=== PATIENT | female | born 1970 | race Two or more races ===

== ENCOUNTER 2024-09-14 12:46 | Inpatient (IN) | payer MEDICAID, OTHER ==
[~2024-09-14] VITALS: Ht 162.6 cm; Wt 89.3 kg
--- NOTE | 2024-09-14 12:58 | ECG ---
[facility] Test Date: 2024-09-14 Test Time: 12:57:45 Pat Name: JOHN PAUL VILLA Department: ER Room: 0222 Gender: F [employer]: EMIL : 1970 Requested By: FLACA ISAAC Order Number: [id number] Reading MD: Julius Burger Measurements Intervals Avenue Rate: 56 P: 44 WA: 141 QRS: 4 QRSD: 126 T: 42 QT: 459 QTc: 444 Interpretive Statements Sinus rhythm Probable left ventricular hypertrophy Anterior Q waves, possibly due to LVH Electronically Signed On 09-18-2024 20:52:14 PDT by Julius Burger Please click the below link to view image of tracing.
--- NOTE | 2024-09-14 13:19 | ED.PDOC ---
GI ASSESSMENT HPI Comments 54 year old female presents to the ED with a chief complaint of abdominal pain onset today (09/14/24). Patient states she woke up experiencing LUQ pain, radiates to epigastric region as well as nausea. Rates pain /. PMHx HTN. Denies vomiting, diarrhea, constipation, chest pain, shortness of breath, dizziness, headache, fevers, chills, dysuria, hematuria. No other symptoms or modifying factors present at this time. 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 GASFITTER History Family History Family History: Reviewed,noncontributory to illness, No family hx of Cancer, No family hx of DM, No family hx of Heart george, No family hx of HTN, No family hx ofKidney george, No family hx of Liver george, No family hx of Lung george, No family hx of Stroke Social History Smoker: Non-Smoker Alcohol: Denies ETOH Use Drugs: Denies Drug Use Lives In: Home Constitutional: denies: chills, diaphoresis, fatigue, fever, malaise, sweats, weakness, others EENTM: denies: blurred vision, double vision, ear bleeding, ear discharge, ear drainage, ear pain, ear ringing, eye pain, eye redness, hearing loss, mouth pain, mouth swelling, nasal discharge, nose bleeding, nose congestion, nose pain, photophobia, tearing, throat pain, throat swelling, voice changes, others Respiratory: denies: cough, hemoptysis, orthopnea, SOB at rest, shortness of breath, SOB with excertion, stridor, wheezing, others Cardiovascular: denies: chest pain, dizzy spells, diaphoresis, Dyspnea on exertion, edema, irregular heart beat, left arm pain, lightheadedness, palpitations, PND, syncope, others Gastrointestinal: reports: abdominal pain (LUQ), nausea; denies: abdomen distended, blood streaked bowels, constipated, diarrhea, dysphagia, difficulty swallowing, hematemesis, melena, poor appetite, poor fluid intake, rectal bleeding, rectal pain, vomiting, others Genitourinary: denies: abnormal vagina bleeding, burning, dyspareunia, dysuria, flank pain, frequency, hematuria, incontinence, pain, , vagina discharge, urgency, others Neurological: denies: dizziness, fainting, headache, left sided numbness, left sided weakness, numbness, paresthesia, pre-existing deficit, right sided numbness, right sided weakness, seizure, speech problems, tingling, tremors, weakness, others Musculoskeletal: denies: back pain, gout, joint pain, joint swelling, muscle pain, muscle stiffness, neck pain, others Integumetry: denies: bruises, change in color, change in hair/nails, dryness, laceration, lesions, lumps, rash, wounds, others Allergic/Immunocompromised: denies: Difficulty Healing, Frequent Infections, Hives, Itching, others Hematologic/Lymphatic: denies: anemia, blood clots, easy bleeding, easy bruising, swollen glands, others Endocrine: denies: excessive hunger, excessive sweating, excessive thirst, excessive urination, flushing, intolerance to cold, intolerance to heat, unexplained weight gain, unexplained weight loss, others Psychiatric: denies: anxiety, bipolar disorder, depression, hopeless, panic disorder, schizophrenia, sleepless, suicidal, others All Other Systems: Reviewed and Negative Physical Exam General Appearance: Moderate Distress, Normal HEENT: Normal ENT Inspection, Pharynx Normal, TMs Normal Neck: Full Range of Motion, Non-Tender, Normal, Normal Inspection Respiratory: Chest Non-Tender, Lungs Clear, No Accessory Muscle Use, No Respiratory Distress, Normal Breath Sounds Cardiovascular: No Edema, No JVD, No Murmur, No Gallop, Normal Peripheral Pulses, Regular Rate/Rhythm Breast Exam: Deferred Gastrointestinal: No Organomegaly, Non Tender, No Pulsatile Mass, Normal Bowel Sounds, Soft Genitalia: Deferred Pelvic: Deferred Rectal: Deferred Extremities: No calf tenderness, Normal capillary refill, Normal inspection, Normal range of motion, Non-tender, No pedal edema Musculoskeletal : Apperance: Normal Neurologic: Alert, bobbin collector II-XII nml as Tested, No Motor Deficits, Normal Affect, Normal Mood, No Sensory Deficits Cerebellar Function: Normal Reflexes: Normal Skin: Dry, Normal Color, Warm Peripheral Pulses: 3+ Radial (R), 3+ Radial (L) Lymphatic: No Adenopathy EKG EKG : Pulse Rate (adult): 56 Cardiac Rhythm: NSR Was a procedure done? Was a procedure done?: No GI differential Dx Differential Diagnosis: Constipation, Diverticular disease, Esophagitis, Gastritis/PUD, Gastroenteritis X-Ray, Labs, Meds, VS Vital Signs Date Time Temp Pulse Resp B/P (MAP) Pulse Ox O2 Delivery O2 Flow Rate FiO2 09/14/24 13:18 56 09/14/24 12:57 56 09/14/24 12:56 97.5 66 18 162/90 (114) 93 97.5 Lab Test 09/14/24 13:08 09/14/24 13:00 Range/Units White Blood Count 7.3 4.4-10.8 10^3/uL Red Blood Count 4.59 4.0-5.20 10^6/uL Hemoglobin 13.7 12.2-16.2 g/dL Hematocrit 41.2 36.0-46.0 % Mean Corpuscular Volume 89.9 80.0-100.0 fL Mean Corpuscular Hemoglobin 29.9 28.0-32.0 pg Mean Corpuscular Hemoglobin Concent 33.3 32.0-36.0 g/dL Red Cell Distribution Width 13.1 11.8-14.3 % Platelet Count 232 140-450 10^3/uL Mean Platelet Volume 9.1 6.9-10.8 fL Neutrophils (%) (Auto) 71.4 37.0-80.0 % Lymphocytes (%) (Auto) 21.5 10.0-50.0 % Monocytes (%) (Auto) 5.4 0.0-12.0 % Eosinophils (%) (Auto) 1.2 0.0-7.0 % Basophils (%) (Auto) 0.5 0.0-2.0 % Neutrophils # (Auto) 5.2 1.6-8.6 10 ^3/uL Lymphocytes # (Auto) 1.6 0.4-5.4 10 ^3/uL Monocytes # (Auto) 0.4 0-1.3 10 ^3/uL Eosinophils # (Auto) 0.1 0-0.8 10 ^3/uL Basophils # (Auto) 0 0-0.2 10 ^3/uL Nucleated Red Blood Cells 0.1 % Sodium Level 139 136-145 mmol/L Potassium Level 4.1 3.5-5.1 mmol/L Chloride Level 107 98-107 mmol/L Carbon Dioxide Level 23 20-31 mmol/L Anion Gap 9 5-15 Blood Urea Nitrogen 16 9-23 mg/dL Creatinine 0.83 0.550-1.02 mg/dL Glomerular Filtration Rate Calc 83 >90 mL/min BUN/Creatinine Ratio 19.3 10.0-20.0 Serum Glucose 109 H 74-106 mg/dL Calcium Level 9.7 8.7-10.4 mg/dL Troponin I High Sensitivity < 3 L </=34 ng/L Urine Color Yellow Yellow Urine Clarity Clear Clear Urine pH 7.5 5.0-9.0 Urine Specific [place] 1.025 1.001-1.035 Urine Protein Negative Negative Urine Ketones Negative Negative Urine Blood Negative Negative /uL Urine Nitrite Negative Negative Urine Bilirubin Negative Negative Urine Urobilinogen Normal Negative mg/dL Urine Leukocyte Esterase 2+ Negative /uL Urine RBC 1 0 - 4 /hpf Urine Microscopic WBC 2 0-5 /HPF Urine Squamous Epithelial Cells Few <5 /hpf Urine Bacteria None seen None Seen /hpf Urine Glucose Normal Normal mg/dL Patient alert. Complaining of abdominal pain. Vitals stable. Answering all questions. Possible gallstone. Possible kidney stone. WBC within normal limits. Hemoglobin within normal limits. Continues to have abdominal pain. CT scan of the abdomen. Blood pressure elevated. Was given clonidine. Time of 1ST Reevaluation: 13:32 Reevaluation 1ST: Unchanged Patient Education/Counseling: Diagnosis, Treatment, Prognosis Family Education/Counseling: No Family Present Additional Information The following tests were ordered, and results were reviewed by me: EKG, TROP, CBC, UA, BMP I discussed treatment and results with medical personnel and: Patient, Comprehensive systems review obtained and negative except for what is stated in the HPI. Departure 1 Departure Time of Disposition: 14:34 Impression: Primary Impression: Acute abdominal pain Additional Impressions: Hypertensive urgency Urinary tract infection Qualified Codes: N30.00 - Acute cystitis without hematuria Disposition: ADMITTED INPATIENT Admit to: Med Surg Condition: Guarded Critical Care Note Critical Care Time?: No Stability Stability form required: No Heart Score Heart Score: Heart Score Response (Comments) Value History N/A 0 EKG N/A 0 Age N/A 0 Risk Factors N/A 0 Troponin N/A 0 Total 0 I personally scribed for FLACA ISAAC MD ([email or web address]) on 09/14/24 at 13:18. Electronically submitted by Beverly Kelley ([email or web address]). I personally scribed for FLACA ISAAC MD ([email or web address]) on 09/14/24 at 13:20. Electronically submitted by Beverly Kelley ([email or web address]). FLACA ISAAC MD Sep 14, 2024 13:18
[2024-09-14 13:31] LABS: Basophils # (auto) 0 10 ^3/uL (0-0.2); Basophils % (auto) 0.5 % (0.0-2.0); Eosinophils # (auto) 0.1 10 ^3/uL (0-0.8); Eosinophils % (auto) 1.2 % (0.0-7.0); Hematocrit 41.2 % (36.0-46.0); Hemoglobin 13.7 g/dL (12.2-16.2); Lymphocytes # (auto) 1.6 10 ^3/uL (0.4-5.4); Lymphocytes % (auto) 21.5 % (10.0-50.0); Mean Corpuscular Hemoglobin 29.9 pg (28.0-32.0); Mean Corpuscular Hgb Conc. 33.3 g/dL (32.0-36.0); Mean Corpuscular Volume 89.9 fL (80.0-100.0); Monocytes # (auto) 0.4 10 ^3/uL (0-1.3); Monocytes % (auto) 5.4 % (0.0-12.0); Neutrophils # (auto) 5.2 10 ^3/uL (1.6-8.6); Neutrophils % (auto) 71.4 % (37.0-80.0); Nucleated Red Blood Cells % 0.1 %; Platelet Count (auto) 232 10^3/uL (140-450); Red Blood Cells 4.59 10^6/uL (4.0-5.20); Red Cell Distribution Width 13.1 % (11.8-14.3); White Blood Cell 7.3 10^3/uL (4.4-10.8)
[2024-09-14 13:33] LABS: Potassium 4.1 mmol/L (3.5-5.1); Sodium 139 mmol/L (136-145)
[2024-09-14 13:34] LABS: Anion Gap 9 (5-15); Calcium 9.7 mg/dL (8.7-10.4); Carbon Dioxide 23 mmol/L (20-31)
[2024-09-14 13:39] LABS: BUN/Creatinine Ratio 19.3 (10.0-20.0); Blood Urea Nitrogen 16 mg/dL (9-23)
[2024-09-14 13:50] LABS: Chloride 107 mmol/L (98-107); Glucose 109 mg/dL (74-106)
[2024-09-14 13:53] LABS: Urine Bacteria None Seen /hpf (None Seen)
[2024-09-14 14:32] LABS: Urine Blood Negative /uL (Negative); Urine Clarity Clear (Clear); Urine Color Yellow (Yellow); Urine Protein, UAD Negative (Negative); Urine Specific Gravity 1.025 (1.001-1.035); Urine Squamous Epithelial Cell FEW /hpf (<5); Urine Urobilinogen Normal (Negative); Urine WBC 2 /HPF (0-5); Urine pH 7.5 (5.0-9.0)
--- NOTE | 2024-09-14 15:02 | DVH ---
EXAM: CT Abdomen and Pelvis Without Intravenous Contrast CLINICAL INDICATION: colitis TECHNIQUE: Axial computed tomography images of the abdomen and pelvis without intravenous contrast. This CT exam was performed using one or more of the following dose reduction techniques: automated exposure control, adjustment of the mA and/or kV according to patient size, and/or use of iterative r econstruction technique. CONTRAST: RADIATION DOSE: CTDIvol = 12.57 mGy, DLP = 651.35 mGy-cm COMPARISON: None FINDINGS: LUNG BASES: Unremarkable. No mass. No consolidation. ABDOMEN: LIVER: Hepatomegaly with fatty infiltration. GALLBLADDER AND BILE DUCTS: Unremarkable. No calcified stones. No ductal dilation. PANCREAS: Unremarkable. No ductal dilation. SPLEEN: Unremarkable. No splenomegaly. ADRENALS: Unremarkable. No mass. KIDNEYS AND URETERS: 5.6 cm left renal cyst. No obstructing stones. No hydronephrosis. STOMACH AND BOWEL: Fecal retention in the colon consistent with constipation. Colonic diverticulos is without acute diverticulitis. No obstruction. PELVIS: APPENDIX: Appendectomy. BLADDER: Unremarkable. No stones. REPRODUCTIVE: Unremarkable as visualized. ABDOMEN and PELVIS: INTRAPERITONEAL SPACE: Unremarkable. No free air. No significant fluid collection. BONES/JOINTS: No acute fracture. No dislocation. SOFT TISSUES: Unremarkable. VASCULATURE: Unremarkable. No abdominal aortic aneurysm. LYMPH NODES: Unremarkable. No enlarged lymph nodes. OTHER FINDINGS: 2.6 cm hypodense lesion of the left hemipelvis could be cysts from prior surgery or duplication cyst. Clinical correlation is recommended. . . IMPRESSION: 1. Hepatomegaly with fatty infiltration. 2. Fecal retention in the colon consistent with constipation. 3. 2.6 cm hypodense lesion of the left hemipelvis could be cysts from prior surgery or duplication c yst. Clinical correlation is recommended. 4. Colonic diverticulosis without acute diverticulitis.
[2024-09-15] VITALS (7 sets, daily range): BP systolic 113–135; BP diastolic 57–92; PULSE 55–80; RESP 16–20; TEMP 97.8–101; O2SAT 93–98
--- NOTE | 2024-09-15 01:29 | DVHHP2 ---
History of Present Illness Reason for Visit: Abdominal pain History of Present Illness 54-year-old female presents for evaluation of abdominal pain. Patient endorses a one day history of sharp epigastric nonradiating abdominal pain. She reports having two episodes of nausea with vomiting. No diarrhea or constipation. No fever or chills. Currently rates the pain at 6/10 intensity. Past Medical History Hypertension Past Surgical History Hysterectomy Family History Noncontributory Smoke: No ALCOHOL: none Drugs: None Lives: with Family Review of Systems Review of Systems Review of systems are currently negative otherwise addressed in HPI. Allergies: Coded Allergies: No Known Drug Allergy (Verified Allergy, Unknown, 09/14/24) Exam Vital Signs Vital Signs Date Time Temp Pulse Resp B/P (MAP) Pulse Ox O2 Delivery O2 Flow Rate FiO2 09/15/24 00:29 100.4 75 20 136/88 (104) 97 100.4 Exam Gen: 54-year-old female in mild distress Skin: Warm, dry, normal color and texture, no rash. HEENT: Normocephalic atraumatic, mucous membranes moist and pink. Neck: Cervical and supraclavicular nodes normal without enlargement, trachea is midline, thyroid gland is normal without masses. Pulmonary: Clear to auscultation and percussion bilaterally. Cardiac: Regular rate and rhythm. No murmur Abdomen: Soft, epigastric tenderness, nondistended, bowel sounds present all 4 quadrants, no guarding, no rigidity, no organomegaly. Extremities: No cyanosis, clubbing, no edema Neuro: Cranial nerves II through XII grossly intact, normal affect and speech, no focal motor deficits. Labs/Xrays ORDERING PHYSICIAN: FLACA ISAAC MD PROCEDURE(s): ABPL - CT AB PEL WO CON-NO ORAL OR IV REASON: colitis ORDER NUMBER(s): [id number], ACCESSION NUMBER(s): [id number] EXAM: CT Abdomen and Pelvis Without Intravenous Contrast CLINICAL INDICATION: colitis TECHNIQUE: Axial computed tomography images of the abdomen and pelvis without intravenous contrast. This CT exam was performed using one or more of the following dose reduction techniques: automated exposure control, adjustment of the mA and/or kV according to patient size, and/or use of iterative reconstruction technique. CONTRAST: RADIATION DOSE: CTDIvol = 12.57 mGy, DLP = 651.35 mGy-cm COMPARISON: None FINDINGS: LUNG BASES: Unremarkable. No mass. No consolidation. ABDOMEN: LIVER: Hepatomegaly with fatty infiltration. GALLBLADDER AND BILE DUCTS: Unremarkable. No calcified stones. No ductal dilation. PANCREAS: Unremarkable. No ductal dilation. SPLEEN: Unremarkable. No splenomegaly. ADRENALS: Unremarkable. No mass. KIDNEYS AND URETERS: 5.6 cm left renal cyst. No obstructing stones. No hydronephrosis. STOMACH AND BOWEL: Fecal retention in the colon consistent with constipation. Colonic diverticulosis without acute diverticulitis. No obstruction. PELVIS: APPENDIX: Appendectomy. BLADDER: Unremarkable. No stones. REPRODUCTIVE: Unremarkable as visualized. ABDOMEN and PELVIS: INTRAPERITONEAL SPACE: Unremarkable. No free air. No significant fluid collection. BONES/JOINTS: No acute fracture. No dislocation. SOFT TISSUES: Unremarkable. VASCULATURE: Unremarkable. No abdominal aortic aneurysm. LYMPH NODES: Unremarkable. No enlarged lymph nodes. OTHER FINDINGS: 2.6 cm hypodense lesion of the left hemipelvis could be cysts from prior surgery or duplication cyst. Clinical correlation is recommended. . . IMPRESSION: 1. Hepatomegaly with fatty infiltration. 2. Fecal retention in the colon consistent with constipation. 3. 2.6 cm hypodense lesion of the left hemipelvis could be cysts from prior surgery or duplication cyst. Clinical correlation is recommended. 4. Colonic diverticulosis without acute diverticulitis. Labs Test 09/14/24 13:08 09/14/24 13:00 Range/Units White Blood Count 7.3 4.4-10.8 10^3/uL Red Blood Count 4.59 4.0-5.20 10^6/uL Hemoglobin 13.7 12.2-16.2 g/dL Hematocrit 41.2 36.0-46.0 % Mean Corpuscular Volume 89.9 80.0-100.0 fL Mean Corpuscular Hemoglobin 29.9 28.0-32.0 pg Mean Corpuscular Hemoglobin Concent 33.3 32.0-36.0 g/dL Red Cell Distribution Width 13.1 11.8-14.3 % Platelet Count 232 140-450 10^3/uL Mean Platelet Volume 9.1 6.9-10.8 fL Neutrophils (%) (Auto) 71.4 37.0-80.0 % Lymphocytes (%) (Auto) 21.5 10.0-50.0 % Monocytes (%) (Auto) 5.4 0.0-12.0 % Eosinophils (%) (Auto) 1.2 0.0-7.0 % Basophils (%) (Auto) 0.5 0.0-2.0 % Neutrophils # (Auto) 5.2 1.6-8.6 10 ^3/uL Lymphocytes # (Auto) 1.6 0.4-5.4 10 ^3/uL Monocytes # (Auto) 0.4 0-1.3 10 ^3/uL Eosinophils # (Auto) 0.1 0-0.8 10 ^3/uL Basophils # (Auto) 0 0-0.2 10 ^3/uL Nucleated Red Blood Cells 0.1 % Sodium Level 139 136-145 mmol/L Potassium Level 4.1 3.5-5.1 mmol/L Chloride Level 107 98-107 mmol/L Carbon Dioxide Level 23 20-31 mmol/L Anion Gap 9 5-15 Blood Urea Nitrogen 16 9-23 mg/dL Creatinine 0.83 0.550-1.02 mg/dL Glomerular Filtration Rate Calc 83 >90 mL/min BUN/Creatinine Ratio 19.3 10.0-20.0 Serum Glucose 109 H 74-106 mg/dL Calcium Level 9.7 8.7-10.4 mg/dL Troponin I High Sensitivity < 3 L </=34 ng/L Urine Color Yellow Yellow Urine Clarity Clear Clear Urine pH 7.5 5.0-9.0 Urine Specific [place] 1.025 1.001-1.035 Urine Protein Negative Negative Urine Ketones Negative Negative Urine Blood Negative Negative /uL Urine Nitrite Negative Negative Urine Bilirubin Negative Negative Urine Urobilinogen Normal Negative mg/dL Urine Leukocyte Esterase 2+ Negative /uL Urine RBC 1 0 - 4 /hpf Urine Microscopic WBC 2 0-5 /HPF Urine Squamous Epithelial Cells Few <5 /hpf Urine Bacteria None seen None Seen /hpf Urine Glucose Normal Normal mg/dL Assessment/Plan Assessment/Plan Assessment Acute abdominal pain Urinary tract infection Hypertension Plan Admit the patient to [facility] to the hospitalist GI consultation Maintenance IV fluids Pain management Continue treatment per orders Plan discussed with: Patient Date of Service: Sep 15, 2024 Billing Provider: JAG MONTE Common Visit Codes: [id number] INP/OBS CARE (MOD) MONTE,FE AGACNP Sep 15, 2024 01:29
[2024-09-15] MEDS ORDERED: MORPHINE SULFATE INJ 2 MG/ml SYRG IV PRN (01:30)
[2024-09-15] MEDS ORDERED: ACETAMINOPHEN 325 MG TAB PO PRN (01:30)
[2024-09-15] MEDS: ONDANSETRON HCL 4 MG/2 ML VIAL IV ONE (01:31)
[2024-09-15] MEDS: MORPHINE SULFATE INJ 2 MG/ml SYRG IV ONE (01:35)
[2024-09-15] MEDS: PANTOPRAZOLE 40 MG/10 ML VIAL INJ IV ONE (01:41)
[2024-09-15 02:02] LABS: Basophils # (auto) 0 10 ^3/uL (0-0.2); Basophils % (auto) 0.2 % (0.0-2.0); Eosinophils # (auto) 0 10 ^3/uL (0-0.8); Hematocrit 39.9 % (36.0-46.0); Hemoglobin 13.4 g/dL (12.2-16.2); Lymphocytes # (auto) 0.4 10 ^3/uL (0.4-5.4); Lymphocytes % (auto) 3.2 % (10.0-50.0); Mean Corpuscular Hemoglobin 30.4 pg (28.0-32.0); Mean Corpuscular Hgb Conc. 33.5 g/dL (32.0-36.0); Mean Corpuscular Volume 90.7 fL (80.0-100.0); Monocytes # (auto) 0.2 10 ^3/uL (0-1.3); Monocytes % (auto) 1.9 % (0.0-12.0); Neutrophils % (auto) 94.7 % (37.0-80.0); Platelet Count (auto) 222 10^3/uL (140-450); Red Cell Distribution Width 13.1 % (11.8-14.3); White Blood Cell 12.7 10^3/uL (4.4-10.8)
[2024-09-15 02:11] LABS: Chloride 104 mmol/L (98-107)
[2024-09-15 02:12] LABS: Anion Gap 11 (5-15); Calcium 9.5 mg/dL (8.7-10.4); Carbon Dioxide 20 mmol/L (20-31)
[2024-09-15 02:17] LABS: BUN/Creatinine Ratio 13.2 (10.0-20.0); Blood Urea Nitrogen 12 mg/dL (9-23); Lipase 37 U/L (12-53)
[2024-09-15 02:20] LABS: Potassium 3.4 mmol/L (3.5-5.1); Sodium 135 mmol/L (136-145)
[2024-09-15 02:21] LABS: Glucose 139 mg/dL (74-106)
[2024-09-15] MEDS: SODIUM CHLORIDE 0.9% 1,000 ML IV SCH (02:31)
[2024-09-15] MEDS: cefTRIAXone 1GM/50ML D5W 50 ML IV SCH (02:31)
[2024-09-15] MEDS: HYDROcodone-ACET 5/325MG TAB PO PRN (08:22)
[2024-09-15] MEDS: LOSARTAN POTASSIUM 50 MG TAB PO SCH (09:22)
[2024-09-15] MEDS: ONDANSETRON HCL 4 MG/2 ML VIAL IV PRN (09:22)
[2024-09-15] MEDS: PANTOPRAZOLE 40 MG/10 ML VIAL INJ IV SCH (09:22)
--- NOTE | 2024-09-15 12:38 | DVHPN2 ---
Reviewed: Care Plan, H&P, Labs, Medications, Previous Orders, Radiology Changes from previous H/P or p: No Changes Objective Vitals Vital Signs Date Time Temp Pulse Resp B/P (MAP) Pulse Ox O2 Delivery O2 Flow Rate FiO2 09/15/24 12:14 98.1 60 16 116/57 (76) 95 98.1 09/15/24 02:44 Room Air* 0 21 Intake/Output Intake and Output 09/15/24 07:00 Intake Total 290 ml Balance 290 ml Intake Oral 240 ml IV Total 50 ml Medications Current Medications Medications Dose Ordered Sig/Baron Route Start Time Stop Time Status Last Admin Dose Admin Losartan Potassium 50 mg DAILY PO 09/15/24 10:00 Ceftriaxone Sodium 50 ml @ 100 mls/hr DAILY@09 IV 09/15/24 01:45 09/15/24 02:31 100 MLS/HR Sodium Chloride 1,000 ml @ 100 mls/hr Q10H IV 09/15/24 01:30 09/15/24 11:40 100 MLS/HR Pantoprazole Sodium 40 mg DAILY IV 09/15/24 10:00 09/15/24 09:22 40 MG Acetaminophen/ Hydrocodone Bitart 1 tab Q4HP PRN PO 09/15/24 01:30 09/15/24 08:22 1 TAB Ondansetron HCl 4 mg Q4HP PRN IV 09/15/24 01:30 09/15/24 09:22 4 MG Acetaminophen 650 mg Q6HP PRN PO 09/15/24 01:30 Morphine Sulfate 2 mg Q6HPRN PRN IV 09/15/24 01:30 Laboratory Results Laboratory Tests 09/15/24 01:37 Chemistry Test 09/14/24 13:08 09/15/24 01:37 Calcium Level 9.7 mg/dL (8.7-10.4) 9.5 mg/dL (8.7-10.4) Lipid panel Test 09/15/24 01:37 Lipase 37 U/L (12-53) Urinalysis Test 09/14/24 13:00 Urine Color Yellow (Yellow) Urine Clarity Clear (Clear) Urine pH 7.5 (5.0-9.0) Urine Specific [place] 1.025 (1.001-1.035) Urine Protein Negative (Negative) Urine Ketones Negative (Negative) Urine Blood Negative /uL (Negative) Urine Nitrite Negative (Negative) Urine Bilirubin Negative (Negative) Urine Urobilinogen Normal mg/dL (Negative) Urine Leukocyte Esterase 2+ /uL (Negative) Urine RBC 1 /hpf (0 - 4) Urine Microscopic WBC 2 /HPF (0-5) Urine Squamous Epithelial Cells Few /hpf (<5) Urine Bacteria None seen /hpf (None Seen) Urine Glucose Normal mg/dL (Normal) Labs and/or images reviewed: Labs reviewed by me, Image(s) reviewed by me Assessment/Plan Assessment/Plan Acute epigastric abdominal pain: CT abdomen pelvis without contrast negative, lipase normal: Consult for GI Dr. William Garnica pantoprazole Hypertension UTI: Rocephin urine cultures Fatty liver Diverticulosis Plan discussed with: Patient Date of Service: Sep 15, 2024 Billing Provider: CHANDA BEST MD Common Visit Codes: [id number] INP/OBS CARE(HIGH) CHANDA BEST MD Sep 15, 2024 12:38
--- NOTE | 2024-09-15 21:59 | DVHINCON2 ---
Date of service: Sep 15, 2024 Referring Physician Pedro Bentley Reason for Consultation Abdominal pain History of Present Illness 54-year-old female presents for evaluation of abdominal pain. Patient endorses a one day history of sharp epigastric nonradiating abdominal pain. She reports having two episodes of nausea with vomiting. No diarrhea or constipation. No fever or chills. Currently rates the pain at 6/10 intensity. Patient was seen in fast track H 6. Patient is resting comfortably. Patient states her abdominal pain has resolved. There was no nausea or vomiting today but she did have some yesterday Past Medical History Past Medical History Hypertension Past Surgical History Past Surgical History Hysterectomy Family History: Patient reports no known family medical history. Allergies: Coded Allergies: No Known Drug Allergy (Verified Allergy, Unknown, 09/14/24) Current Medications Current Medications Medications (Trade) Dose Ordered Sig/Baron Route PRN Reason Start Time Stop Time Status Last Admin Losartan Potassium (Cozaar Tablet) 50 mg DAILY PO 09/15/24 10:00 Ceftriaxone Sodium 50 ml @ 100 mls/hr DAILY@09 IV 09/15/24 01:45 09/15/24 02:31 Sodium Chloride 1,000 ml @ 100 mls/hr Q10H IV 09/15/24 01:30 09/15/24 11:40 Pantoprazole Sodium (Protonix) 40 mg DAILY IV 09/15/24 10:00 09/15/24 09:22 Acetaminophen/ Hydrocodone Bitart ([place] 5/325MG Tab) 1 tab Q4HP PRN PO MODERATE PAIN (4-6 PAIN SCALE) 09/15/24 01:30 09/15/24 08:22 Ondansetron HCl (Zofran) 4 mg Q4HP PRN IV NAUSEA / VOMITING 09/15/24 01:30 09/15/24 20:57 Acetaminophen (Tylenol Tablet) 650 mg Q6HP PRN PO PAIN SCALE 1-3 OR TEMP>100.4 09/15/24 01:30 Morphine Sulfate 2 mg Q6HPRN PRN IV SEVERE PAIN (7-10 PAIN SCALE) 09/15/24 01:30 Vital Signs Vital Signs Date Time Temp Pulse Resp B/P (MAP) Pulse Ox O2 Delivery O2 Flow Rate FiO2 09/15/24 16:00 97.8 55 17 127/64 (85) 97 97.8 09/15/24 02:44 Room Air* 0 21 Labs/Diagnostic Data Labs Test 09/15/24 01:37 09/14/24 13:08 09/14/24 13:00 Range/Units White Blood Count 12.7 #H 4.4-10.8 10^3/uL Red Blood Count 4.40 4.0-5.20 10^6/uL Hemoglobin 13.4 12.2-16.2 g/dL Hematocrit 39.9 36.0-46.0 % Mean Corpuscular Volume 90.7 80.0-100.0 fL Mean Corpuscular Hemoglobin 30.4 28.0-32.0 pg Mean Corpuscular Hemoglobin Concent 33.5 32.0-36.0 g/dL Red Cell Distribution Width 13.1 11.8-14.3 % Platelet Count 222 140-450 10^3/uL Mean Platelet Volume 9.3 6.9-10.8 fL Neutrophils (%) (Auto) 94.7 H 37.0-80.0 % Lymphocytes (%) (Auto) 3.2 L 10.0-50.0 % Monocytes (%) (Auto) 1.9 0.0-12.0 % Eosinophils (%) (Auto) 0.0 0.0-7.0 % Basophils (%) (Auto) 0.2 0.0-2.0 % Neutrophils # (Auto) 12.0 H 1.6-8.6 10 ^3/uL Lymphocytes # (Auto) 0.4 0.4-5.4 10 ^3/uL Monocytes # (Auto) 0.2 0-1.3 10 ^3/uL Eosinophils # (Auto) 0 0-0.8 10 ^3/uL Basophils # (Auto) 0 0-0.2 10 ^3/uL Nucleated Red Blood Cells 0.0 % Sodium Level 135 L 136-145 mmol/L Potassium Level 3.4 L 3.5-5.1 mmol/L Chloride Level 104 98-107 mmol/L Carbon Dioxide Level 20 20-31 mmol/L Anion Gap 11 5-15 Blood Urea Nitrogen 12 9-23 mg/dL Creatinine 0.91 0.550-1.02 mg/dL Glomerular Filtration Rate Calc 75 >90 mL/min BUN/Creatinine Ratio 13.2 10.0-20.0 Serum Glucose 139 H 74-106 mg/dL Calcium Level 9.5 8.7-10.4 mg/dL Lipase 37 12-53 U/L Troponin I High Sensitivity < 3 L </=34 ng/L Urine Color Yellow Yellow Urine Clarity Clear Clear Urine pH 7.5 5.0-9.0 Urine Specific [place] 1.025 1.001-1.035 Urine Protein Negative Negative Urine Ketones Negative Negative Urine Blood Negative Negative /uL Urine Nitrite Negative Negative Urine Bilirubin Negative Negative Urine Urobilinogen Normal Negative mg/dL Urine Leukocyte Esterase 2+ Negative /uL Urine RBC 1 0 - 4 /hpf Urine Microscopic WBC 2 0-5 /HPF Urine Squamous Epithelial Cells Few <5 /hpf Urine Bacteria None seen None Seen /hpf Urine Glucose Normal Normal mg/dL CT SCAN ABD PELVIS IMPRESSION: 1. Hepatomegaly with fatty infiltration. 2. Fecal retention in the colon consistent with constipation. 3. 2.6 cm hypodense lesion of the left hemipelvis could be cysts from prior surgery or duplication cyst. Clinical correlation is recommended. 4. Colonic diverticulosis without acute diverticulitis. Problems(with codes): (1) Acute abdominal pain (2) Hypertensive urgency (3) Urinary tract infection Plan/Recommendation Plan Advance diet as tolerated Protonix 40 mg IV q.12 hours ;IV antibiotics Check right upper quadrant ultrasound Check labs and liver panel tomorrow and leukocytosis If symptoms persist consider endoscopic evaluation Plan discussed with: Patient JODIE DUMONT MD Sep 15, 2024 21:59
[2024-09-16] VITALS (9 sets, daily range): BP systolic 95–135; BP diastolic 52–85; PULSE 59–74; RESP 16–20; TEMP 97.5–98.7; O2SAT 95–100
--- NOTE | 2024-09-16 00:45 | DVH ---
INDICATION: epigastric pain TECHNIQUE: Multiple real-time sonographic images of the abdomen were obtained. COMPARISON: None FINDINGS: Liver is mildly enlarged measuring 18.7 cm but demonstrates normal echogenicity. No focal lesions kena ntified. No intrahepatic or extrahepatic biliary ductal dilatation with the common bile duct measuring 5 mm. Gallbladder appears unremarkable with no stones or wall thickening. Visualized pancreas appears unremarkable. Right kidney measures 10.7 cm and appears unremarkable with no hydronephrosis. No fluid collection noted. IMPRESSION: No abnormality demonstrated.
[2024-09-16 06:43] LABS: Basophils # (auto) 0 10 ^3/uL (0-0.2); Basophils % (auto) 0.3 % (0.0-2.0); Eosinophils # (auto) 0.2 10 ^3/uL (0-0.8); Eosinophils % (auto) 1.7 % (0.0-7.0); Hemoglobin 12.8 g/dL (12.2-16.2); Lymphocytes # (auto) 0.8 10 ^3/uL (0.4-5.4); Lymphocytes % (auto) 8.1 % (10.0-50.0); Mean Corpuscular Hemoglobin 30.7 pg (28.0-32.0); Mean Corpuscular Hgb Conc. 34.7 g/dL (32.0-36.0); Mean Corpuscular Volume 88.4 fL (80.0-100.0); Monocytes # (auto) 0.4 10 ^3/uL (0-1.3); Monocytes % (auto) 3.7 % (0.0-12.0); Neutrophils # (auto) 8.7 10 ^3/uL (1.6-8.6); Neutrophils % (auto) 86.2 % (37.0-80.0); Platelet Count (auto) 183 10^3/uL (140-450); Red Blood Cells 4.18 10^6/uL (4.0-5.20); Red Cell Distribution Width 13.4 % (11.8-14.3); White Blood Cell 10.1 10^3/uL (4.4-10.8)
[2024-09-16 06:49] LABS: INR 1.26 (0.9-1.15); Prothrombin Time 13.1 sec (9.3-11.8)
[2024-09-16 06:54] LABS: Albumin 3.8 g/dL (3.2-4.8); Anion Gap 9 (5-15); BUN/Creatinine Ratio 15.7 (10.0-20.0); Blood Urea Nitrogen 13 mg/dL (9-23); Calcium 8.9 mg/dL (8.7-10.4); Carbon Dioxide 23 mmol/L (20-31); Chloride 106 mmol/L (98-107); Glucose 101 mg/dL (74-106); Sodium 138 mmol/L (136-145)
[2024-09-16 06:58] LABS: Alanine Aminotransferase 319 U/L (7-40); Alkaline Phosphatase 123 U/L (46-116); Aspartate Aminotransferase 177 U/L (13-40); Bilirubin, Total 3.7 mg/dL (0.2-1.0); Potassium 2.9 mmol/L (3.5-5.1)
--- NOTE | 2024-09-16 08:14 | DVHPN2 ---
Reviewed: Care Plan, H&P, Labs, Medications, Previous Orders, Radiology Changes from previous H/P or p: No Changes Objective Vitals Vital Signs Date Time Temp Pulse Resp B/P (MAP) Pulse Ox O2 Delivery O2 Flow Rate FiO2 09/16/24 01:00 97.8 60 16 113/59 (77) 100 97.8 09/15/24 02:44 Room Air* 0 21 Intake/Output Intake and Output 09/16/24 07:00 Intake Total 480 ml Output Total 5 ml Balance 475 ml Intake Oral 480 ml Output Urine Total 5 ml Medications Current Medications Medications Dose Ordered Sig/Baron Route Start Time Stop Time Status Last Admin Dose Admin Losartan Potassium 50 mg DAILY PO 09/15/24 10:00 Ceftriaxone Sodium 50 ml @ 100 mls/hr DAILY@09 IV 09/15/24 01:45 09/15/24 02:31 100 MLS/HR Sodium Chloride 1,000 ml @ 100 mls/hr Q10H IV 09/15/24 01:30 09/15/24 21:30 100 MLS/HR Pantoprazole Sodium 40 mg DAILY IV 09/15/24 10:00 09/15/24 09:22 40 MG Acetaminophen/ Hydrocodone Bitart 1 tab Q4HP PRN PO 09/15/24 01:30 09/15/24 08:22 1 TAB Ondansetron HCl 4 mg Q4HP PRN IV 09/15/24 01:30 09/15/24 20:57 4 MG Acetaminophen 650 mg Q6HP PRN PO 09/15/24 01:30 Morphine Sulfate 2 mg Q6HPRN PRN IV 09/15/24 01:30 Laboratory Results Laboratory Tests 09/16/24 06:00 Chemistry Test 09/16/24 06:00 Albumin 3.8 g/dL (3.2-4.8) Calcium Level 8.9 mg/dL (8.7-10.4) Total Protein 7.0 g/dL (5.7-8.2) Coagulation Test 09/16/24 06:00 Prothrombin Time 13.1 sec (9.3-11.8) H Prothrombin Time INR 1.26 (0.9-1.15) H LFT Test 09/16/24 06:00 Alanine Aminotransferase (ALT) 319 U/L (7-40) H Alkaline Phosphatase 123 U/L (46-116) H Aspartate Amino Transferase (AST) 177 U/L (13-40) H Total Bilirubin 3.7 mg/dL (0.2-1.0) H Urinalysis Test 09/14/24 13:00 Urine Color Yellow (Yellow) Urine Clarity Clear (Clear) Urine pH 7.5 (5.0-9.0) Urine Specific [place] 1.025 (1.001-1.035) Urine Protein Negative (Negative) Urine Ketones Negative (Negative) Urine Blood Negative /uL (Negative) Urine Nitrite Negative (Negative) Urine Bilirubin Negative (Negative) Urine Urobilinogen Normal mg/dL (Negative) Urine Leukocyte Esterase 2+ /uL (Negative) Urine RBC 1 /hpf (0 - 4) Urine Microscopic WBC 2 /HPF (0-5) Urine Squamous Epithelial Cells Few /hpf (<5) Urine Bacteria None seen /hpf (None Seen) Urine Glucose Normal mg/dL (Normal) Labs and/or images reviewed: Labs reviewed by me, Image(s) reviewed by me Assessment/Plan Assessment/Plan Acute epigastric abdominal pain: CT abdomen pelvis without contrast negative, gallbladder ultrasound negative, lipase normal: Consult for GI Dr. William Garnica appreciated, continue pantoprazole Hypertension UTI: Rocephin urine cultures Fatty liver Diverticulosis Plan discussed with: Patient My Orders Orders - CHANDA BEST MD Procedure Category Date Status Time * Gi [facility] [employer] CONS 09/15/24 Transmitted 12:38 Date of Service: Sep 16, 2024 Billing Provider: CHANDA BEST MD Common Visit Codes: [id number] INP/OBS CARE(HIGH) CHANDA BEST MD Sep 16, 2024 08:14
[2024-09-16] MEDS ORDERED: SODIUM CHLORIDE LOCK 10 ML ONE (08:26)
[2024-09-16] MEDS: POTASSIUM EFFERVESENT TAB 25 MEQ PO ONE (09:51)
[2024-09-16 13:35] LABS: Potassium 3.9 mmol/L (3.5-5.1)
[2024-09-16 13:40] LABS: Magnesium 2.2 mg/dL (1.6-2.6)
[2024-09-16] MEDS: LIDOCAINE VISCOUS 2% 15ML UD ONE (13:56)
[2024-09-16] MEDS: diphenhdrAMINE HCL 50 MG/1 ML VL ONE (13:58)
[2024-09-16] MEDS: fentaNYL CITRATE 100 MCG/2 ML VL ONE (13:58)
[2024-09-16] MEDS: MIDAZOLAM HCL 5 MG/ML-1ML VIAL ONE (13:58)
--- NOTE | 2024-09-16 14:13 | DVHOP2 ---
Operative Report DATE OF OPERATION: 09/16/24 PROCEDURE: Upper Endoscopy with biopsy. PREOPERATIVE INDICATION: The patient is a 54 -year-old female undergoing endoscopy for epigastric pain POSTOPERATIVE DIAGNOSES: 1. 2 cm sliding-type hiatal hernia with slightly irregular squamocolumnar junction and grade a erosive esophagitis 2. Mild gastritis otherwise normal examination up to the 2nd and 3rd part of the duodenum PROCEDURE PERFORMED BY: Jodie Garnica GI NURSE: Mami SCOPE: Olympus videoendoscope. ASA CLASS: 2 PREOPERATIVE MEDICATIONS: Versed 3 mg, Fentanyl 75 mcg, Benadryl 50 mg I administered moderate sedation throughout this _10_ minutes procedure. An independent trained observer pushed medications at my direction, and monitored the patient's level of consciousness and physiological status throughout. PROCEDURE IN DETAIL: After obtaining an informed consent, the patient was placed on left lateral decubitus position. The patient was then sedated with the above medications. A bite block was placed between her teeth. The endoscope was then passed through the oropharynx, into the esophagus, and through the stomach and pylorus up to the second and third part of the duodenum. The endoscope was then withdrawn. The 2nd and 3rd part of the duodenal and the duodenal bulb were normal. Duodenal biopsies were obtained. The pre-pyloric area antrum and body showed mild gastritis. Gastric biopsies were obtained On retroflexion the fundus cardia and angularis were normal. The endoscope was then withdrawn into the distal esophagus. Patient had a 2 cm sliding-type hiatal hernia with irregular squamocolumnar junction and grade a erosive esophagitis. GE junction biopsies were obtained. The remaining distal and proximal esophagus and oropharynx were The patient tolerated the procedure well without difficulty. COMPLICATIONS : None SPECIMENS: Duodenal biopsies Gastric biopsies GE junction biopsies DISPOSITION: Transfer back to the floor Stable PLAN: 1. Await for biopsy result 2. Will place pt on Protonix 40 mg bid 3. Carafate 1 g p.o. twice a day 4. DC aspirin NSAIDs smoking alcohol 5. Lifestyle and dietary modifications for GERD 6. Soft mechanical diet JODIE GARNICA MD Sep 16, 2024 14:13
[2024-09-17 01:00] VITALS: BP 109/55; PULSE 62; RESP 17; TEMP 98.8; O2SAT 97
[2024-09-17 05:00] VITALS: BP 111/63; PULSE 60; RESP 18; TEMP 98.8; O2SAT 96
[2024-09-17 09:15] VITALS: BP 127/67; PULSE 53; RESP 15; TEMP 98.6; O2SAT 99
[2024-09-17] MEDS ORDERED: PANT40T PO (09:25)
--- NOTE | 2024-09-17 09:26 | DVHPN2 ---
Reviewed: Care Plan, H&P, Labs, Medications, Previous Orders, Radiology Changes from previous H/P or p: No Changes Objective Vitals Vital Signs Date Time Temp Pulse Resp B/P (MAP) Pulse Ox O2 Delivery O2 Flow Rate FiO2 09/17/24 09:15 98.6 53 15 127/67 (87) 99 98.6 09/16/24 20:00 Room Air* 0 21 Intake/Output Intake and Output 09/17/24 07:00 Intake Total 950 ml Output Total 0 ml Balance 950 ml Intake Oral 450 ml IV Total 500 ml Output Urine Total 0 ml # Voids 4 # Bowel Movements 2 Medications Current Medications Medications Dose Ordered Sig/Baron Route Start Time Stop Time Status Last Admin Dose Admin Losartan Potassium 50 mg DAILY PO 09/15/24 10:00 09/16/24 08:43 50 MG Ceftriaxone Sodium 50 ml @ 100 mls/hr DAILY@09 IV 09/15/24 01:45 09/16/24 08:42 100 MLS/HR Sodium Chloride 1,000 ml @ 100 mls/hr Q10H IV 09/15/24 01:30 09/17/24 04:12 100 MLS/HR Pantoprazole Sodium 40 mg DAILY IV 09/15/24 10:00 09/16/24 08:42 40 MG Acetaminophen/ Hydrocodone Bitart 1 tab Q4HP PRN PO 09/15/24 01:30 09/15/24 08:22 1 TAB Ondansetron HCl 4 mg Q4HP PRN IV 09/15/24 01:30 09/15/24 20:57 4 MG Acetaminophen 650 mg Q6HP PRN PO 09/15/24 01:30 Morphine Sulfate 2 mg Q6HPRN PRN IV 09/15/24 01:30 Laboratory Results Laboratory Tests 09/16/24 06:00 09/16/24 13:00 Chemistry Test 09/16/24 13:00 Magnesium Level 2.2 mg/dL (1.6-2.6) Urinalysis Test 09/14/24 13:00 Urine Color Yellow (Yellow) Urine Clarity Clear (Clear) Urine pH 7.5 (5.0-9.0) Urine Specific [place] 1.025 (1.001-1.035) Urine Protein Negative (Negative) Urine Ketones Negative (Negative) Urine Blood Negative /uL (Negative) Urine Nitrite Negative (Negative) Urine Bilirubin Negative (Negative) Urine Urobilinogen Normal mg/dL (Negative) Urine Leukocyte Esterase 2+ /uL (Negative) Urine RBC 1 /hpf (0 - 4) Urine Microscopic WBC 2 /HPF (0-5) Urine Squamous Epithelial Cells Few /hpf (<5) Urine Bacteria None seen /hpf (None Seen) Urine Glucose Normal mg/dL (Normal) Labs and/or images reviewed: Labs reviewed by me, Image(s) reviewed by me Assessment/Plan Assessment/Plan Acute epigastric abdominal pain: CT abdomen pelvis without contrast negative, gallbladder ultrasound negative, lipase normal: Consult for GI Dr. William Garnica appreciated, continue pantoprazole STATUS POST EGD BY DR. William GARNICA ON 09/16/2024 with the following findings: 2 cm sliding-type hiatal hernia with slightly irregular squamocolumnar junction and grade a erosive esophagitis Mild gastritis otherwise normal examination up to the 2nd and 3rd part of the duodenum Hypertension Mild UTI treated with the Rocephin Fatty liver Diverticulosis Plan discussed with: Patient Date of Service: Sep 17, 2024 Billing Provider: CHANDA BEST MD Common Visit Codes: [id number] INP/OBS CARE(HIGH) CHANDA BEST MD Sep 17, 2024 09:26
--- NOTE | 2024-09-17 09:30 | DVHDS2 ---
Discharge Summary Date of Admission Sep 15, 2024 at 01:23 Date of Discharge: Sep 17, 2024 Admitting Diagnosis Epigastric abdominal pain Wounds: EGD Labs/Diagnostic Data: Laboratory Results Test 09/16/24 13:00 09/16/24 06:00 09/15/24 01:37 09/14/24 13:08 Potassium Level 3.9 mmol/L (3.5-5.1) Magnesium Level 2.2 mg/dL (1.6-2.6) White Blood Count 10.1 10^3/uL (4.4-10.8) Red Blood Count 4.18 10^6/uL (4.0-5.20) Hemoglobin 12.8 g/dL (12.2-16.2) Hematocrit 37.0 % (36.0-46.0) Mean Corpuscular Volume 88.4 fL (80.0-100.0) Mean Corpuscular Hemoglobin 30.7 pg (28.0-32.0) Mean Corpuscular Hemoglobin Concent 34.7 g/dL (32.0-36.0) Red Cell Distribution Width 13.4 % (11.8-14.3) Platelet Count 183 10^3/uL (140-450) Mean Platelet Volume 9.3 fL (6.9-10.8) Neutrophils (%) (Auto) 86.2 % (37.0-80.0) Lymphocytes (%) (Auto) 8.1 % (10.0-50.0) Monocytes (%) (Auto) 3.7 % (0.0-12.0) Eosinophils (%) (Auto) 1.7 % (0.0-7.0) Basophils (%) (Auto) 0.3 % (0.0-2.0) Neutrophils # (Auto) 8.7 10 ^3/uL (1.6-8.6) Lymphocytes # (Auto) 0.8 10 ^3/uL (0.4-5.4) Monocytes # (Auto) 0.4 10 ^3/uL (0-1.3) Eosinophils # (Auto) 0.2 10 ^3/uL (0-0.8) Basophils # (Auto) 0 10 ^3/uL (0-0.2) Nucleated Red Blood Cells 0.0 % Prothrombin Time 13.1 sec (9.3-11.8) Prothrombin Time INR 1.26 (0.9-1.15) Sodium Level 138 mmol/L (136-145) Chloride Level 106 mmol/L (98-107) Carbon Dioxide Level 23 mmol/L (20-31) Anion Gap 9 (5-15) Blood Urea Nitrogen 13 mg/dL (9-23) Creatinine 0.83 mg/dL (0.550-1.02) Glomerular Filtration Rate Calc 83 mL/min (>90) BUN/Creatinine Ratio 15.7 (10.0-20.0) Serum Glucose 101 mg/dL (74-106) Calcium Level 8.9 mg/dL (8.7-10.4) Total Bilirubin 3.7 mg/dL (0.2-1.0) Aspartate Amino Transferase (AST) 177 U/L (13-40) Alanine Aminotransferase (ALT) 319 U/L (7-40) Alkaline Phosphatase 123 U/L (46-116) Total Protein 7.0 g/dL (5.7-8.2) Albumin 3.8 g/dL (3.2-4.8) Lipase 37 U/L (12-53) Troponin I High Sensitivity < 3 ng/L (</=34) Test 09/14/24 13:00 Urine Color Yellow (Yellow) Urine Clarity Clear (Clear) Urine pH 7.5 (5.0-9.0) Urine Specific [place] 1.025 (1.001-1.035) Urine Protein Negative (Negative) Urine Ketones Negative (Negative) Urine Blood Negative /uL (Negative) Urine Nitrite Negative (Negative) Urine Bilirubin Negative (Negative) Urine Urobilinogen Normal mg/dL (Negative) Urine Leukocyte Esterase 2+ /uL (Negative) Urine RBC 1 /hpf (0 - 4) Urine Microscopic WBC 2 /HPF (0-5) Urine Squamous Epithelial Cells Few /hpf (<5) Urine Bacteria None seen /hpf (None Seen) Urine Glucose Normal mg/dL (Normal) Other Laboratory Tests 09/16/24 13:00 09/16/24 06:00 Brief Hx & Hospital Course: 54-year-old female came in with a epigastric abdominal pain. CT abdomen pelvis without contrast negative. Gallbladder ultrasound negative lipase normal started on pantoprazole EGD by Dr. William Garnica showed 2 cm sliding-type hiatal hernia with slightly irregular squamocolumnar junction and grade a erosive esophagitis. Mild gastritis history of hypertension also has fatty liver and diverticulosis mild UTI treated with Rocephin patient is asymptomatic with stable vital signs discharged home on pantoprazole. She will follow up with GI Dr. William Garnica in 10 days Consults/Reason for consult NOEMY Garnica Operations or Procedures EGD Condition at Discharge: Fair Final Diagnosis/Problems List Acute epigastric abdominal pain: CT abdomen pelvis without contrast negative, gallbladder ultrasound negative, lipase normal: Consult for GI Dr. William Garnica appreciated, continue pantoprazole STATUS POST EGD BY DR. William GARNICA ON 09/16/2024 with the following findings: 2 cm sliding-type hiatal hernia with slightly irregular squamocolumnar junction and grade a erosive esophagitis Mild gastritis otherwise normal examination up to the 2nd and 3rd part of the duodenum Hypertension Mild UTI treated with the Rocephin Fatty liver Diverticulosis Discharge Disposition: Home Discharge Instruct/Medications Diet: Regular Activity: Light activity Follow Up/Referral: Follow up with the primary Dr in one week Follow up with GI Dr. William Garnica in 10 days Medications: Pantoprazole Transmitted to [facility]'s 38 (Time taken for discharge summary 38 minutes) Discharge Statement: "Patient was advised to return to the ER or call 911 if any headaches, dizziness, shortness of breath, chest pain, abdominal pain, bleeding, fevers, or worsening of medical condition. Patient was counseled about treatment plan, medications, possible side effects, patientverbalized understanding. All questions were answered to the best of my ability. This discharge took greater then 30 minutes in planning, reviewing documentation, counseling the patient, and discussing with other team members." ASSESSMENT ASSESSMENT Hospital Course Improved Assessment Acute epigastric abdominal pain: CT abdomen pelvis without contrast negative, gallbladder ultrasound negative, lipase normal: Consult for GI Dr. William Garnica appreciated, continue pantoprazole STATUS POST EGD BY DR. William GARNICA ON 09/16/2024 with the following findings: 2 cm sliding-type hiatal hernia with slightly irregular squamocolumnar junction and grade a erosive esophagitis Mild gastritis otherwise normal examination up to the 2nd and 3rd part of the duodenum Hypertension Mild UTI treated with the Rocephin Fatty liver Diverticulosis Date of Service: Sep 17, 2024 Billing Provider: CHANDA BEST MD Common Visit Codes: [id number] DISCH DAY >30min CHANDA BEST MD Sep 17, 2024 09:30
[2024-09-17] MEDS ORDERED: AMLO1TAB21 PO (10:10)
[2024-09-17 12:53] VITALS: BP 127/67; TEMP 37
[2024-09-17 13:26] VITALS: BP 139/82; PULSE 61; RESP 16; TEMP 98.5; O2SAT 97
--- NOTE | 2024-09-17 20:29 | DVHPN2 ---
Progress Note - Dictate Date Seen: Sep 17, 2024 (Time of visit 1:00 p.m.) Medical Necessity Reason Pt with a Central, PICC or Fol: No Subjective No new complaints Abdominal pain improved Patient tolerating diet vital signs Vital Sign Date Time Temp Pulse Resp B/P (MAP) Pulse Ox O2 Delivery O2 Flow Rate FiO2 09/17/24 13:26 98.5 61 16 139/82 (101) 97 98.5 09/17/24 08:10 Room Air* 0 21 Total Intake and Output 09/16/24 09/16/24 09/17/24 15:00 23:00 07:00 Intake Total 350 ml 150 ml 450 ml Output Total 0 ml Balance 350 ml 150 ml 450 ml objective Gen: 54-year-old female in no distress Skin: Warm, dry, normal color and texture, no rash. HEENT: Normocephalic atraumatic, mucous membranes moist and pink. Neck: Cervical and supraclavicular nodes normal without enlargement, trachea is midline, thyroid gland is normal without masses. Pulmonary: Clear to auscultation and percussion bilaterally. Cardiac: Regular rate and rhythm. No murmur Abdomen: Soft, epigastric tenderness, nondistended, bowel sounds present all 4 quadrants, no guarding, no rigidity, no organomegaly. Extremities: No cyanosis, clubbing, no edema Neuro: Cranial nerves II through XII grossly intact, normal affect and speech, no focal motor deficits. laboratory and microbiology Laboratory Tests 09/16/24 13:00 09/16/24 06:00 Test 09/16/24 06:00 Range/Units Serum Glucose 101 74-106 mg/dL Problems(with codes): (1) Gastritis (2) Hiatal hernia with GERD (3) Acute abdominal pain Prognosis Plan Advance diet as tolerated Discharge planning is in progress Protonix 40 mg p.o. daily DC aspirin NSAIDs Outpatient follow up with me to discuss elective colonoscopy Plan discussed with: Patient JODIE DUMONT MD Sep 17, 2024 20:29
== END 2024-09-17 13:58 | disposition home or self-care (01) | DRG 241 ==
LOC: ER 12:46 → OVERFLOW 09-15 01:23 → CENTRAL 09-16 15:39
PROVIDERS: ADMIT Family Medicine; ATTEND Family Medicine
PROC: 0DB68ZX Excision of Stomach, Via Natural or Artificial Opening Endoscopic, Diagnostic (ICD-10-PCS; 2024-09-16)
PROC: 0DB48ZX Excision of Esophagogastric Junction, Via Natural or Artificial Opening Endoscopic, Diagnostic (ICD-10-PCS; 2024-09-16)
PROC: 0DB98ZX Excision of Duodenum, Via Natural or Artificial Opening Endoscopic, Diagnostic (ICD-10-PCS; principal; 2024-09-16 13:55)
DX: K29.70 Gastritis, unspecified, without bleeding (principal); K76.0 Fatty (change of) liver, not elsewhere classified; K22.10 Ulcer of esophagus without bleeding; K44.9 Diaphragmatic hernia without obstruction or gangrene; K57.30 Diverticulosis of large intestine without perforation or abscess without bleeding; I10 Essential (primary) hypertension; N39.0 Urinary tract infection, site not specified; I16.0 Hypertensive urgency; K21.9 Gastro-esophageal reflux disease without esophagitis; Z90.710 Acquired absence of both cervix and uterus; Z79.899 Other long term (current) drug therapy
CPT/HCPCS: 36415; 43239; 74176; 76705; 80048; 80053; 81001; 83690; 83735; 84132; 84484; 85025; 85610; 93005; 96374; 96375; G0378; J2250; J2405; J2470